=== PATIENT | female | born 1990 | race Caucasian/White ===

== ENCOUNTER → 2017-04-19 | Outpatient (CLI) | payer BC, OTHER ==
[2017-04-19 15:30] LABS: URINE APPEARANCE CLEAR (CLEAR); URINE BILIRUBIN NEG (NEG); URINE COLOR YELLOW; URINE EPITHELIAL CELL AUTO 0-5 /lpf (0-5); URINE NITRITE NEG (NEG); URINE PH 7.5 (4.5-7.5); URINE SPECIFIC GRAVITY 1.015 (1.000-1.030); UROBILINOGEN NEG (NEG)
[2017-04-19 15:34] LABS: MANUAL MICROSCOPIC REQUIRED? NO; REVIEW REQ? NO
== END | disposition home or self-care (01) ==
LOC: C.LABSPEC 13:46
PROVIDERS: ATTEND Obstetrics & Gynecology
DX: Z34.91 Encounter for supervision of normal pregnancy, unspecified, first trimester (principal)

== ENCOUNTER → 2017-05-05 | Outpatient (CLI) | payer BC ==
[2017-05-05 12:22] LABS: BASO % 0.1 %; BASO ABS # 0.01 K/uL (0-0.2); COMPLETE YES; EOS % 1.5 %; HEMATOCRIT 37.6 % (37-47); IG% 0.3 %; LYMPH % 26.3 %; LYMPH ABS # 2.05 K/uL (1.2-3.4); MEAN CELL VOLUME 87.4 fL (80-100); MEAN CORPUSCULAR HEMOGLOBIN 30.7 pg (25-34); MEAN CORPUSCULAR HGB CONC 35.1 g/dl (32-36); MEAN PLATELET VOLUME 10.8 fL (7.4-10.4); MONO % 6.2 %; NEUT % 65.6 %; PLATELET COUNT 156 K/uL (130-400); WHITE BLOOD COUNT 7.78 K/uL (4.8-10.8)
[2017-05-08 07:21] LABS: CHLAMYDIA TRACH RNA*** NOT DETECTED (NOT DETECTED); GC (NEIS GONORRHOEAE)RNA** NOT DETECTED (NOT DETECTED)
== END | disposition home or self-care (01) ==
LOC: C.LAB1850 10:28
PROVIDERS: ATTEND Obstetrics & Gynecology
DX: Z34.91 Encounter for supervision of normal pregnancy, unspecified, first trimester (principal)

== ENCOUNTER → 2017-06-30 | Outpatient (CLI) | payer OTHER | END | disposition home or self-care (01) | LOC: C.LAB1850 13:51 | PROVIDERS: ATTEND Obstetrics & Gynecology | DX: Z34.92 Encounter for supervision of normal pregnancy, unspecified, second trimester (principal) ==

== ENCOUNTER → 2017-09-08 | Outpatient (CLI) | payer OTHER ==
[2017-09-08 12:29] LABS: HEMATOCRIT 32.4 % (37-47); HEMOGLOBIN 11.2 g/dL (12.0-16.0)
== END | disposition home or self-care (01) ==
LOC: C.LAB1850 09:24
PROVIDERS: ATTEND Obstetrics & Gynecology
DX: Z34.83 Encounter for supervision of other normal pregnancy, third trimester (principal)

== ENCOUNTER → 2017-09-19 | Outpatient (CLI) | payer OTHER | END | disposition home or self-care (01) | LOC: C.LAB1850 07:32 | PROVIDERS: ATTEND Obstetrics & Gynecology | DX: O28.1 Abnormal biochemical finding on antenatal screening of mother (principal); Z3A.00 Weeks of gestation of pregnancy not specified ==

== ENCOUNTER → 2018-01-12 | Outpatient (CLI) | payer OTHER ==
[~2018-01-12] MED LIST: PRENTAB26 PO
== END | disposition home or self-care (01) ==
LOC: C.PAPS 14:25
PROVIDERS: ATTEND Obstetrics & Gynecology
DX: Z12.4 Encounter for screening for malignant neoplasm of cervix (principal)

== ENCOUNTER 2021-02-24 22:04 | Inpatient (IN) ==
[2021-02-24] MEDS ORDERED: OXYTOCIN 30 UNITS/500 ML BAG IV PRN (22:16)
[2021-02-24] MEDS: LACTATED RINGER'S 1,000 ML IV PRN (22:24)
[2021-02-24] MEDS ORDERED: fentaNYL citrate 100 MCG/2 ML VIAL ONE (22:49)
[2021-02-24] MEDS ORDERED: SODIUM CHLORIDE 0.9% INJ 10 ML VIAL ONE (22:49)
[2021-02-24] MEDS ORDERED: BUPIVACAINE 0.25% 30 ML VIAL ONE (22:49)
[2021-02-24] MEDS ORDERED: ePHEDrine sulfate 50 MG/ML AMP ONE (22:49)
[2021-02-24] MEDS ORDERED: fentaNYL 2MCG/ML ROPIVACAINE 1.25MG/ML 100 ML BAG EPI ONE (22:50)
[2021-02-24 22:51] LABS: Hemoglobin 11.5 g/dL (12.0-16.0); Mean Corpuscular Hemoglobin 30.1 pg (25-34); Mean Corpuscular Hgb Conc 32.9 g/dL (32-36); Mean Corpuscular Volume 91.6 fL (80-100); Platelet Count 161 K/uL (130-400); RDW Coefficient of Variation 14.6 % (11.5-14.5); RDW Standard Deviation 49.6 fL (36.4-46.3); Red Blood Count 3.82 M/uL (4.2-5.4); White Blood Count 9.15 K/uL (4.8-10.8)
[2021-02-24] MEDS ORDERED: OXYTOCIN 30 UNITS/500ML NSS ONE (23:00)
[2021-02-24 23:08] LABS: Albumin Level 2.6 gm/dl (3.4-5.0); BUN Creatinine Ratio 19.4 (10-20); Calcium 8.7 mg/dl (8.5-10.1); Creatinine Clr Calc Pharmacy 122.2 ml/min; Est GFR (African American) 136.2 ml/min; Est GFR (Non-African American) 117.5 ml/min; Potassium 3.9 mmol/L (3.5-5.1)
[2021-02-24 23:10] LABS: Albumin Globulin Ratio 0.7 (0.9-2); Bilirubin,Total 0.2 mg/dl (0.2-1); Globulin 3.9 gm/dl (2.5-4.0); Total Protein 6.5 gm/dl (6.4-8.2)
--- NOTE | 2021-02-24 23:40 | Anesthesiology Consultation ---
Date of Service February 24, 2021 Assessment & Plan (1) Encounter for pre-operative examination: Chart Review Chart Review: Acceptable Risk for Surgery and Patient NOT seen in Pre Admission Testing Consults Requested none ASA [id number] Proposed Anesthesia Anesthesia Type: Labor Epidural Risk / Benefits Reviewed With: PT / POA / Parent / Guardian, Accepts Plan and Informed Consent Obtained History Height/Weight Height: 5 ft 3 in Weight: 77.111 kg Allergies Allergy/AdvReac Type Severity Reaction Status Date / Time gluten Allergy Severe GI SYMPTOMS Verified 02/24/21 22:18 Medications Home Medications Medication Instructions Recorded Confirmed Last Taken vits no.124-ferrous fum 1 tab PO DAILY 02/24/21 02/24/21 02/24/21 27 mg iron-folic acid 800 mcg tablet ( Vitamin) Active Medications Generic Name Dose Route Start Last Admin Trade Name Freq PRN Reason Stop Dose Admin Lactated Ringer's 1,000 mls @ 125 mls/hr 02/24/21 22:16 02/24/21 23:08 Lr IV 02/26/21 22:15 125 mls/hr .Q8H PRN Infusion L&D Protocol Protocol NPO Date Last Intake of Fluids: 02/24/21 Time Last Intake of Fluids: 23:37 Date Last Intake of Solids: 02/24/21 Time Last Intake of Solids: 23:38 Past Medical History Medical History History of chicken pox Shingles Exercise / Class Metabolic Activity II 4-5 Yardwork/Stairs/Walk up hill Past Family History Family History Grandmother (Maternal) Ovarian cancer Mother BRCA positive Denies family history of Breast cancer Colorectal cancer Past Surgical History Surgical History S/P wisdom tooth extraction Past Anesthesia History No Hx of Anesthesia Complications History of PONV No Hx of PONV Social History Smoking Status: Never smoker Hx Alcohol Use: No Hx Substance Use: No substance use type: does not use Review of Systems Negative for chest pain or shortness of breath. Patient denies history of abnormal bleeding or bleeding disorder. Patient denies active use of anticoagulants other than low dose aspirin. Patient denies numbness, tingling or weakness in lower extremities. Physical Exam Vital Signs Last Vital Signs Temp 36.8 C 02/24/21 22:22 Pulse 118 H 02/24/21 23:33 Resp 18 02/24/21 22:22 BP 138/88 02/24/21 22:51 Pulse Ox 96 02/24/21 23:33 Constitutional not obese (gravid) ENMT Mouth: no TMJ abnormality and oral opening not small Thyromental Distance: > or= 3.5 Finger Breadths Mallampati Class: II Neck normal visual inspection; neck extension not limited Respiratory normal respiratory effort Cardiovascular Rate/Rhythm: regular rate and regular rhythm Neurologic moves all extremities Psychiatric Orientation: alert and oriented x 3 Testing Laboratory Results 02/24/21 22:39 02/24/21 22:39
--- NOTE | 2021-02-25 00:55 | History & Physical Report ---
Date of Service February 25, 2021 Assessment & Plan (1) Encounter for supervision of normal in multigravida: Plan: Admit to L&D for labor. EFM, toco, labs. COVID swab per protocol. OK for epidural if she desires. Admission and Anticipated Discharge Date Admission Date: February 24, 2021 History of Present Illness Chief Complaint: labor Primary Care Provider: LIZA Rojas 30yo @ 39 10/09, spontaneous labor. complicated by low-lying placenta, resolved. Had been pau throughout the day, this has progressed to Q 4 min ctx. No VB, ROM. +FM Allergies Allergy/AdvReac Type Severity Reaction Status Date / Time gluten Allergy Severe GI SYMPTOMS Verified 02/24/21 22:18 Home Medications Medication Instructions Recorded Confirmed Type vits no.124-ferrous fum 1 tab PO DAILY 02/24/21 02/24/21 History 27 mg iron-folic acid 800 mcg tablet ( Vitamin) Patient History Medical History History of chicken pox Shingles Surgical History S/P wisdom tooth extraction Family History Grandmother (Maternal) Ovarian cancer Mother BRCA positive Denies family history of Breast cancer Colorectal cancer Social History Smoking Status: Never smoker Hx Alcohol Use: No Hx Substance Use: No Preferred Language: Lao Communication Ability: Effective 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 No s/s chorio or abruption. Skin: no rashes, warm and dry Psychiatric: A+Ox3, euthymic affect Results & Data ([facility]) Vital Signs (Past 12 Hours) Vital Signs Temp Pulse Resp BP Pulse Ox 02/25/21 00:43 36.5 C 92 H 20 100 02/25/21 00:40 93 H 93 02/25/21 00:38 95 H 88 L 02/25/21 00:33 102 H 85 L 02/25/21 00:28 98 H 92 02/25/21 00:25 109 H 140/81 02/25/21 00:23 103 H 95 02/25/21 00:20 93 H 90 02/25/21 00:18 101 H 95 02/25/21 00:15 123 H 174/86 H 02/25/21 00:14 109 H 196/109 H 02/25/21 00:13 105 H 97 02/25/21 00:11 110 H 156/88 H 02/25/21 00:08 109 H 20 181/92 H 98 02/25/21 00:05 98 H 188/112 H 02/25/21 00:03 103 H 98 02/25/21 00:02 109 H 161/82 H 02/24/21 23:58 109 H 94 02/24/21 23:55 111 H 94 02/24/21 23:53 111 H 99 02/24/21 23:48 107 H 94 02/24/21 23:47 104 H 94 02/24/21 23:43 123 H 96 02/24/21 23:41 109 H 94 02/24/21 23:38 127 H 169/84 H 98 02/24/21 23:37 100 H 170/79 H 02/24/21 23:33 118 H 96 02/24/21 23:28 106 H 97 02/24/21 22:51 112 H 138/88 02/24/21 22:22 36.8 C 18 02/24/21 22:11 108 H 163/98 H Monitoring External Monitor FHT cat 1 Anna Q 3-4 SVE /-1 Coding Level of Care Code None Diagnoses Encounter for supervision of normal in multigravida Z34.80
[2021-02-25] MEDS: LACTATED RINGER'S 1,000 ML IV PRN (00:59)
--- NOTE | 2021-02-25 01:01 | Labor Progress Brief Note ---
Date of Service February 25, 2021 Subjective Patient progressed to 9cm dilation, was very painful. Gave option to either AROM and try to retract cervix and push to deliver baby, or could wait for labs to result and anesthesia to be able to come up for epidural. Patient initially wanted epidural, but then felt like she wanted to try AROM and pushing. AROM performed, clear fluid. Attempted to retract cervix around head, however patient experienced significant pain with this and requested that I stop. Atte mpted to push with the next few ctx, this did not result in full dilation of cervix, therefore anesthesia was called. Patient was able to sit up for spinal, got some relief from this. Attempted to continue pushing at this point, 0 station. Patient still with some discomfort, which is causing her to pull back from pushing with ctx. Hard to find a comfortable position. T Cat 1. Since she is not feeling urge to push, I suggested that she try to labor down until she feels pressure/urge to push, in order to make her pushing efforts more effective. She felt like this might work. Assessment & Plan Admission and Anticipated Discharge Date Admission Date: February 24, 2021 Results & Data ([facility]) Vital Signs (Past 12 Hours) Vital Signs Temp Pulse Resp BP Pulse Ox 02/25/21 00:43 36.5 C 92 H 20 100 02/25/21 00:40 93 H 93 02/25/21 00:38 95 H 88 L 02/25/21 00:33 102 H 85 L 02/25/21 00:28 98 H 92 02/25/21 00:25 109 H 140/81 02/25/21 00:23 103 H 95 02/25/21 00:20 93 H 90 02/25/21 00:18 101 H 95 02/25/21 00:15 123 H 174/86 H 02/25/21 00:14 109 H 196/109 H 02/25/21 00:13 105 H 97 02/25/21 00:11 110 H 156/88 H 02/25/21 00:08 109 H 20 181/92 H 98 02/25/21 00:05 98 H 188/112 H 02/25/21 00:03 103 H 98 02/25/21 00:02 109 H 161/82 H 02/24/21 23:58 109 H 94 02/24/21 23:55 111 H 94 09/22/21 23:53 111 H 99 02/24/21 23:48 107 H 94 02/24/21 23:47 104 H 94 02/24/21 23:43 123 H 96 02/24/21 23:41 109 H 94 02/24/21 23:38 127 H 169/84 H 98 02/24/21 23:37 100 H 170/79 H 02/24/21 23:33 118 H 96 02/24/21 23:28 106 H 97 02/24/21 22:51 112 H 138/88 02/24/21 22:22 36.8 C 18 02/24/21 22:11 108 H 163/98 H Coding Level of Care Code None
--- NOTE | 2021-02-25 01:54 | Labor Progress Brief Note ---
Date of Service February 25, 2021 Subjective Completely dilated, 0 to +1 station. Pushing about 2 times per contraction. Suspect OP positioning of baby. Discussed with patient, she is frustrated that the baby is not out yet. Will try alternate positions in hopes of rotation of baby's head to hopefully allow easier delivery. Assessment & Plan Admission and Anticipated Discharge Date Admission Date: February 24, 2021 Results & Data ([facility]) Vital Signs (Past 12 Hours) Vital Signs Temp Pulse Resp BP Pulse Ox 02/25/21 01:41 101 H 182/92 H 02/25/21 01:11 100 H 164/80 H 02/25/21 00:43 36.5 C 92 H 20 100 02/25/21 00:40 93 H 93 02/25/21 00:38 95 H 88 L 02/25/21 00:33 102 H 85 L 02/25/21 00:28 98 H 92 02/25/21 00:25 109 H 140/81 02/25/21 00:23 103 H 95 02/25/21 00:20 93 H 90 02/25/21 00:18 101 H 95 02/25/21 00:15 123 H 174/86 H 02/25/21 00:14 109 H 196/109 H 02/25/21 00:13 105 H 97 02/25/21 00:11 110 H 156/88 H 02/25/21 00:08 109 H 20 181/92 H 98 02/25/21 00:05 98 H 188/112 H 02/25/21 00:03 103 H 98 02/25/21 00:02 109 H 161/82 H 02/24/21 23:58 109 H 94 02/24/21 23:55 111 H 94 02/24/21 23:53 111 H 99 02/24/21 23:48 107 H 94 02/24/21 23:47 104 H 94 02/24/21 23:43 123 H 96 02/24/21 23:41 109 H 94 02/24/21 23:38 127 H 169/84 H 98 02/24/21 23:37 100 H 170/79 H 02/24/21 23:33 118 H 96 02/24/21 23:28 106 H 97 02/24/21 22:51 112 H 138/88 02/24/21 22:22 36.8 C 18 02/24/21 22:11 108 H 163/98 H Coding Level of Care Code None
[2021-02-25] MEDS ORDERED: CITRIC ACID/SODIUM CITRATE 15 ML UDC ONE (02:36)
--- NOTE | 2021-02-25 02:39 | History & Physical Bridge Note ---
Date of Service February 25, 2021 History & Physical Bridge Note I have examined the patient, reviewed the History & Physical and in the interval since the performance of the History & Physical I have noted the following changes of clinical significance: no changes noted Patient has been repositioned on both sides, and hands and knees. Then pushed again, making some progress to +1 station. At this point, patient is requesting section. She feels like she is emotionally and physically exhausted an d cannot continue. I counseled her on this being her 3rd , and that with some good pushing effort, we would likely be able to deliver the baby vaginally. She again requests section instead. Informed consent obtained, will proceed to OR for section for maternal request due to exhaustion.
[2021-02-25] MEDS ORDERED: ceFAZolin 2000MG 2,000 MG/15 ML SYR IV ONE (02:45)
[2021-02-25] MEDS ORDERED: CITRIC ACID/SODIUM CITRATE 15 ML UDC PO ONE (02:45)
[2021-02-25] MEDS ORDERED: ONDANSETRON INJ 2 MG/ML 2 ML VIAL ONE (02:47)
[2021-02-25] MEDS ORDERED: fentaNYL citrate 100 MCG/2 ML VIAL ONE (02:47)
[2021-02-25] MEDS ORDERED: MoRPHine SULFATE PF 1 MG/ML 10 ML AMP/VIAL ONE (02:48)
[2021-02-25] MEDS ORDERED: OXYTOCIN 10 UNITS/ML VIAL ONE (02:49)
[2021-02-25] MEDS ORDERED: SODIUM CHLORIDE 0.9% INJ 10 ML VIAL ONE (02:49)
[2021-02-25] MEDS ORDERED: PHENYLEPHRINE 100MCG/ML 5ML SYR ONE (03:41)
[2021-02-25] MEDS ORDERED: ePHEDrine sulfate 50 MG/ML SYR ONE (03:41)
[2021-02-25] MEDS ORDERED: ONDANSETRON INJ 2 MG/ML 2 ML VIAL IV PRN ×2 (03:47→21:47)
[2021-02-25] MEDS ORDERED: NALBUPHINE HCL INJ 10 MG/ML AMP IV PRN (03:47)
[2021-02-25] MEDS ORDERED: HYDROmorphone INJ 0.5 MG/0.5 ML SYR IV PRN (03:47)
[2021-02-25] MEDS ORDERED: MoRPHine SULFATE PF 1 MG/ML 10 ML AMP/VIAL INT SPINAL ONE (03:47)
[2021-02-25] MEDS ORDERED: ACETAMINOPHEN 1000 MG/100 ML IV IV PRN (03:47)
[2021-02-25] MEDS ORDERED: NALOXONE HCL 0.4 MG/1 ML VIAL/CARP IV PRN (03:47)
[2021-02-25] MEDS ORDERED: LACTATED RINGER'S 500 ML IV PRN (03:47)
[2021-02-25] MEDS ORDERED: NALOXONE HCL 0.08 MG in SYRINGE 1.8 ML IV PRN (03:47)
[2021-02-25] MEDS ORDERED: NALOXONE HCL 1 MG in SODIUM CHLORIDE 0.9% 1000ML 1,000 ML IV PRN (03:47)
[2021-02-25] MEDS ORDERED: ePHEDrine sulfate 50 MG/ML AMP IV PRN (03:47)
[2021-02-25] MEDS ORDERED: DC INTRASPINAL MORPHINE SCH (04:00)
[2021-02-25] MEDS ORDERED: SODIUM CHLORIDE 0.9% 1000ML 1,000 ML IV SCH (04:00)
[2021-02-25] MEDS ORDERED: NO NARCOTICS OR SEDATIVES SCH (04:00)
--- NOTE | 2021-02-25 04:16 | Operative Report ---
PG Post Operative Report Pre & Post Diagnosis Operation Date: 02/25/21 02:30 Pre-Op Diagnosis: 1. Labor, maternal exhaustion Post-Op Diagnosis: 1. Same, cephalopelvic disproportion 2. Delivery of live male child I identified the patient and participated in the time-out.: Yes Procedure Operation Date: 02/25/21 02:30 Actual Procedures Primary Low Transverse Section in - Aubree Adkins DO Surgeon Aubree Adkins, Fiber Optic Assembly Worker Edelmira Tomas RN Estimated Blood Loss 650 Findings Consistent with Post-Op Diagnosis Viable male , Apgars 8/9. Weight 8# 13oz. Normal appearing uterus, tubes, ovaries. Specimens placenta, cord blood, cord gas Drains khan clear yellow Anesthesia Type Spinal Complications none Disposition Accompanied Patient To Recovery: No Disposition: L&D Indications 30yo @ 39 5/7, arrived to L&D in spontaneous labor. Pushed for 2 hours, became exhausted and requested section. At time of , finding of cephalopelvic disproportion and 8#13oz baby. Her two prior babies were 6 and 7 lbs. Description of Procedure The patient was seen in her labor and delivery room, risks benefits and alternatives to surgery were reviewed. Informed consent obtained. Questions were answered. She was taken to the operating room, spinal anesthesia was administered. She was then prepared and draped in the usual sterile fashion in the supine position with a leftward tilt. Timeout was confirmed. A Pfannenstiel skin incision was made with a scalpel, and carried through to the underlying layer of fascia. Fascia was nicked at midline, and this incision was extended bilaterally. The superior aspect of the fascial incision was grasped with Dunia clamps x2, elevated off the underlying rectus abdominis muscles, and dissected sharply and bluntly. In similar fashion, the inferior aspect of the fascial incision was dissected. The rectus abdominis muscles were , and the peritoneum was entered bluntly digitally. This was extended bilaterally. The bladder flap was taken down carefully using Metzenbaum scissors. Using a new scalpel, a low transverse uterine incision was created. Clear amniotic fluid noted. The was delivered from a cephalic presentation. The head delivered, followed by shoulders and body. Spontaneous cry on the field. The cord was doubly clamped and cut, and the was handed off to the waiting horologist apprentice. A segment was retained for cord gases. Cord blood was obtained. The placenta was delivered spontaneously intact. The uterus was exteriorized, and cleared of all clots and debris. The hysterotomy incision was reapproximated using 0 Vicryl in a running locked stitch. A second layer of the same suture was used to imbricate the incision. Posterior uterus was evaluated and normal. The uterus was returned to the abdomen, and gutters were cleared of clots and debris. 2-0 vicryl used as [id number] suture at hysterotomy to obtain hemostasis. Excellent hemostasis was observed. The fascial incision was reapproximated using 0 Vicryl in a running stitch. The subcutaneous tissue was irrigated, and reapproximated using 2-0 plain gut in a running stitch. The skin was reapproximated using 4-0 Vicryl in a running subcuticular stitch. Steri-Strips and a bandage were applied. The patient tolerated the procedure well, and will be taken to the recovery area in stable and good condition. Sponge, needle, instrument counts correct x 2. I attest to the content of the Intraoperative Record and any orders documented therein. Any exceptions are noted below. OB Procedure charges OB Charges 44116
[2021-02-25 04:18] LABS: Base Excess Cord Venous Blood -6.7 mEq/L (-7.7-1.9); Cord Venous Blood HCO3 20 mmol/L (18.4-26.8); Cord Venous Blood PCO2 43 mmHg (30.4-57.2); Cord Venous Blood PO2 25 mmHg (14.1-43.3); Cord Venous Blood pH 7.28 (7.20-7.44)
[2021-02-25 04:22] LABS: Base Excess Cord Arterial Bld -3.1 mEq/L (-9-1.8); CO2 Cord Arterial Blood 65 mmHg (39.1-73.5); HCO3 Cord Arterial Blood 26 mmol/L (19.7-28.5); PO2 Cord Arterial Blood 17 mmHg (4.1-31.7); pH Cord Arterial Blood 7.22 (7.1-7.38)
[2021-02-25 04:23] LABS: O2 Saturation Cord Venous Bld < 68.0 % (<68); Oxygen Sat Cord Arterial Blood < 60.0 % (<60)
[2021-02-25] MEDS ORDERED: BENZOCAINE 20% AER SPR 82.5 GM CAN EXT PRN (04:33)
[2021-02-25] MEDS ORDERED: SUPERCREAM 0.870% 15 GM JAR EXT PRN (04:33)
[2021-02-25] MEDS ORDERED: DIPHTHERIA/TETANUS/PERTUSSIS 0.5 ML SYR/VIAL IM ONE (04:33)
[2021-02-25] MEDS ORDERED: MAGNESIUM HYDROXIDE SUSP 30 ML UDC PO PRN (04:33)
[2021-02-25] MEDS ORDERED: SENNA 8.6 MG TAB PO PRN (04:33)
[2021-02-25] MEDS ORDERED: HYDROCORTISONE ACETATE 25 MG SUPP PR PRN (04:33)
[2021-02-25] MEDS: OXYTOCIN 30 UNITS in LACTATED RINGER'S 1,000 ML IV SCH ×2 (04:45→12:53)
--- NOTE | 2021-02-25 05:15 | Anesthesiology Progress Note ---
Date of Service February 25, 2021 Anesthesia Post Procedure Vital Signs Vital Signs: Temp Pulse Resp BP Pulse Ox 02/25/21 05:10 96 H 18 131/72 02/25/21 05:09 89 97 02/25/21 05:04 89 97 02/25/21 05:00 94 H 16 132/64 02/25/21 04:59 92 H 98 02/25/21 04:54 99 H 97 02/25/21 04:50 100 H 18 121/58 L 02/25/21 04:49 100 H 97 02/25/21 04:44 93 H 98 02/25/21 04:40 105 H 18 129/63 02/25/21 04:39 101 H 98 02/25/21 04:34 93 H 97 02/25/21 04:30 95 H 18 129/58 L 02/25/21 04:29 95 H 97 02/25/21 04:24 97 H 96 02/25/21 04:20 36.6 C 98 H 18 126/58 L 02/25/21 04:19 97 H 98 02/25/21 02:13 117 H 143/69 H 02/25/21 01:57 112 H 190/142 H 02/25/21 01:41 101 H 182/92 H 02/25/21 01:11 100 H 164/80 H 02/25/21 00:43 36.5 C 92 H 20 100 02/25/21 00:40 93 H 93 02/25/21 00:38 95 H 88 L 02/25/21 00:33 102 H 85 L 02/25/21 00:28 98 H 92 02/25/21 00:25 109 H 140/81 02/25/21 00:23 103 H 95 02/25/21 00:20 93 H 90 02/25/21 00:18 101 H 95 02/25/21 00:15 123 H 174/86 H 02/25/21 00:14 109 H 196/109 H 02/25/21 00:13 105 H 97 02/25/21 00:11 110 H 156/88 H 02/25/21 00:08 109 H 20 181/92 H 98 02/25/21 00:05 98 H 188/112 H 02/25/21 00:03 103 H 98 02/25/21 00:02 109 H 161/82 H 02/24/21 23:58 109 H 94 02/24/21 23:55 111 H 94 02/24/21 23:53 111 H 99 02/24/21 23:48 107 H 94 02/24/21 23:47 104 H 94 02/24/21 23:43 123 H 96 02/24/21 23:41 109 H 94 02/24/21 23:38 127 H 169/84 H 98 02/24/21 23:37 100 H 170/79 H 02/24/21 23:33 118 H 96 02/24/21 23:28 106 H 97 02/24/21 22:51 112 H 138/88 02/24/21 22:22 36.8 C 18 02/24/21 22:11 108 H 163/98 H Transfer of Care Handoff Completed per policy Notes Mental Status: alert / awake / arousable and participated in evaluation Nausea / Vomiting: adequately controlled Pain: adequately controlled Airway Patency, RR, SpO2: stable & adequate BP & HR: stable & adequate Hydration State: stable & adequate Neuraxial Anesthesia: was administered and sensory block is resolving Anesthetic Complications: no major complications apparent and Pt Satisfied with anesthetic care
[2021-02-25] MEDS: KETOROLAC 30 MG/ML VIAL IV PRN ×3 (05:39→20:50)
[2021-02-25] MEDS: FERROUS SULFATE 325 MG TAB PO SCH (07:58)
[2021-02-25] MEDS: DOCUSATE SODIUM 100 MG CAP PO SCH ×2 (07:58→20:50)
[2021-02-25] MEDS: SIMETHICONE 80 MG CHEW PO SCH ×4 (07:59→20:50)
[2021-02-25] MEDS ORDERED: Nursing to Pharmacy Communication SCH (08:00)
[2021-02-25] MEDS ORDERED: PRENATAL VITAMIN 1 TAB PO SCH (08:00)
[2021-02-25] MEDS: diphenhydrAMINE 50 MG/ML VIAL IV PRN ×2 (08:45→15:33)
--- NOTE | 2021-02-25 09:46 | Anesthesiology Progress Note ---
Date of Service February 25, 2021 Anesthesia Post Procedure Vital Signs Vital Signs: Temp Pulse Pulse Resp BP BP Pulse Ox 02/25/21 09:15 16 97 02/25/21 08:15 16 97 02/25/21 07:15 98.1 F 84 18 137/70 98 02/25/21 06:34 96 H 99 02/25/21 06:30 111 H 145/84 H 02/25/21 06:29 95 H 98 02/25/21 06:24 80 98 02/25/21 06:20 82 18 139/72 02/25/21 06:19 85 98 02/25/21 06:14 83 96 02/25/21 06:10 89 133/70 02/25/21 06:09 94 H 98 02/25/21 06:04 90 97 02/25/21 06:00 84 134/71 02/25/21 05:59 88 98 02/25/21 05:54 82 97 02/25/21 05:50 84 16 132/69 02/25/21 05:49 86 97 02/25/21 05:44 89 98 02/25/21 05:40 96 H 145/73 H 02/25/21 05:39 104 H 97 02/25/21 05:34 97 H 97 02/25/21 05:30 90 136/72 02/25/21 05:29 89 98 02/25/21 05:24 89 97 02/25/21 05:20 90 16 138/70 02/25/21 05:19 94 H 98 02/25/21 05:14 96 H 97 02/25/21 05:10 96 H 18 131/72 02/25/21 05:09 89 97 02/25/21 05:04 89 97 02/25/21 05:00 94 H 16 132/64 02/25/21 04:59 92 H 98 02/25/21 04:54 99 H 97 02/25/21 04:50 100 H 18 121/58 L 02/25/21 04:49 100 H 97 02/25/21 04:44 93 H 98 02/25/21 04:40 105 H 18 129/63 02/25/21 04:39 101 H 98 02/25/21 04:34 93 H 97 02/25/21 04:30 95 H 18 129/58 L 02/25/21 04:29 95 H 97 02/25/21 04:24 97 H 96 02/25/21 04:20 97.9 F 98 H 18 126/58 L 02/25/21 04:19 97 H 98 02/25/21 02:13 117 H 143/69 H 02/25/21 01:57 112 H 190/142 H 02/25/21 01:41 101 H 182/92 H 02/25/21 01:11 100 H 164/80 H 02/25/21 00:43 97.7 F 92 H 20 100 02/25/21 00:40 93 H 93 02/25/21 00:38 95 H 88 L 02/25/21 00:33 102 H 85 L 02/25/21 00:28 98 H 92 02/25/21 00:25 109 H 140/81 02/25/21 00:23 103 H 95 02/25/21 00:20 93 H 90 02/25/21 00:18 101 H 95 02/25/21 00:15 123 H 174/86 H 02/25/21 00:14 109 H 196/109 H 02/25/21 00:13 105 H 97 02/25/21 00:11 110 H 156/88 H 02/25/21 00:08 109 H 20 181/92 H 98 02/25/21 00:05 98 H 188/112 H 02/25/21 00:03 103 H 98 02/25/21 00:02 109 H 161/82 H 02/24/21 23:58 109 H 94 02/24/21 23:55 111 H 94 02/24/21 23:53 111 H 99 02/24/21 23:48 107 H 94 02/24/21 23:47 104 H 94 02/24/21 23:43 123 H 96 02/24/21 23:41 109 H 94 02/24/21 23:38 127 H 169/84 H 98 02/24/21 23:37 100 H 170/79 H 02/24/21 23:33 118 H 96 02/24/21 23:28 106 H 97 02/24/21 22:51 112 H 138/88 02/24/21 22:22 98.2 F 18 02/24/21 22:11 108 H 163/98 H Pain Intensity Bilateral Abdomen: Pain Intensity: 1 Transfer of Care Handoff Completed per policy Notes Mental Status: alert / awake / arousable and participated in evaluation Nausea / Vomiting: adequately controlled Pain: adequately controlled Airway Patency, RR, SpO2: stable & adequate BP & HR: stable & adequate Hydration State: stable & adequate Neuraxial Anesthesia: was administered and sensory block is resolving Anesthetic Complications: no major complications apparent and Pt Satisfied with anesthetic care
[2021-02-25] MEDS: MULTIVITAMIN PO SCH (11:41)
[2021-02-25] MEDS ORDERED: LACTATED RINGER'S 1,000 ML IV SCH (20:45)
[2021-02-25] MEDS ORDERED: diphenhydrAMINE 50 MG/ML VIAL IV PRN (21:47)
[2021-02-25] MEDS ORDERED: PROMETHAZINE HCL 25 MG in SODIUM CHLORIDE 0.9% 50 ML IV PRN (21:47)
[2021-02-25] MEDS ORDERED: KETOROLAC 30 MG/ML VIAL IV PRN (21:47)
[2021-02-25] MEDS ORDERED: diphenhydrAMINE Capsule 25 MG CAP PO PRN (21:47)
[2021-02-25] MEDS: IBUPROFEN 600 MG TAB PO PRN (22:07)
[2021-02-25] MEDS: oxyCODONE/ACETAMINOPHEN 5mg/325mg TAB PO PRN (22:07)
[2021-02-26] MEDS: oxyCODONE/ACETAMINOPHEN 5mg/325mg TAB PO PRN ×5 (03:44→21:03)
[2021-02-26] MEDS: IBUPROFEN 600 MG TAB PO PRN ×5 (03:44→21:04)
[2021-02-26 06:09] LABS: Eosinophils # (auto) 0.05 K/uL (0-0.5); Eosinophils % (auto) 0.6 %; Hematocrit (blood only) 27.3 % (37-47); Immature Granulocytes # (auto) 0.02 K/uL (0.00-0.02); Immature Granulocytes % (auto) 0.3 %; Lymphocytes # (auto) 1.63 K/uL (1.2-3.4); Lymphocytes % (auto) 20.4 %; Mean Corpuscular Hemoglobin 29.8 pg (25-34); Mean Corpuscular Volume 90.4 fL (80-100); Mean Platelet Volume 10.4 fL (7.4-10.4); Monocytes # (auto) 0.71 K/uL (0.11-0.59); Monocytes % (auto) 8.9 %; Neutrophils # (auto) 5.58 K/uL (1.4-6.5); Neutrophils % (auto) 69.8 %; Platelet Count 110 K/uL (130-400); RDW Coefficient of Variation 15.1 % (11.5-14.5); RDW Standard Deviation 50.1 fL (36.4-46.3); Red Blood Count 3.02 M/uL (4.2-5.4); White Blood Count 7.99 K/uL (4.8-10.8)
--- NOTE | 2021-02-26 07:13 | Obstetrical Progress Note ---
Date of Service February 26, 2021 Assessment & Plan (1) delivery delivered: Plan: 30yo PPD 1 s/p LTCS at 39wks 5days -Continue routine care, bandages removed today -Vitals reviewed- HDS, afebrile -Encourage ambulation, advance to regular diet -Pain control with ibuprofen, acetaminophen PRN -Hgb 9.0 -discharge likely tomorrow morning Admission and Anticipated Discharge Date Admission Date: February 24, 2021 Supervising Physician Co-Signing Physician Notes Resident Physician Supervision Note: I was present with [Name of resident] during the history and exam. I discussed the case with the resident and agree with the findings and plan as documented in the note. Any exceptions or clarifications are listed here: [None] Documented By: Michelle Becker MD, FACOG Subjective POD 1 s/p LCTS. Patient seen and examined at bedside. Reports no acute overnight events. Ambulating and voiding. Passing gas, not yet stool. Progressing to regular diet this morning w/o N/V. Bottle Feeding. Pain 0/10 on analgesics. Review of Systems Review of Systems: Denies fevers/chills. Denies dyspnea, cough. Denies chest pain. Denies breast pain or discharge. Denies dysuria. Denies headache. Denies back pain. Physical Exam Physical Exam: General: Alert, oriented, no acute distress Cardiac: Regular rate and rhythm, normal S1, S2. No murmurs appreciated. Respiratory: Clear to auscultation b/l with good air flow entry, symmetric chest rise and fall. No wheezes or crackles. No increased work of breathing or accessory muscle use Abdomen: Soft, nontender, nondistended. Fundus firm and palpable at 1 cm below umbilicus. Surgical incision clean, dry and intact without erythema, warmth or drainage. Bowel sounds appreciated. No guarding or rebound. Skin: No rashes or lesions Extremities: Warm, dry, well-perfused with capillary refill <2s b/l. No lower extremity edema, erythema or swelling. Negative Yue's sign b/l. Results & Data ([facility]) Vital Signs (Past 12 Hours) Vital Signs Temp Pulse Resp BP Pulse Ox 02/26/21 03:30 36.8 C 80 18 136/78 97 02/25/21 23:00 36.8 C 76 20 134/78 98 02/25/21 21:00 20 97 02/25/21 20:10 18 95 02/25/21 19:20 36.8 C 83 20 143/82 H 96 Resident Activity Tracking Resident Involvement: Resident Care Provided Care Provided: OB Delivery
[2021-02-26] MEDS: SIMETHICONE 80 MG CHEW PO SCH ×4 (08:30→21:04)
[2021-02-26] MEDS: FERROUS SULFATE 325 MG TAB PO SCH (08:30)
[2021-02-26] MEDS: DOCUSATE SODIUM 100 MG CAP PO SCH ×2 (08:30→21:03)
[2021-02-26] MEDS: MULTIVITAMIN PO SCH (13:24)
[2021-02-26] MEDS ORDERED: bisacodyL 5 MG TABEC PO SCH (20:00)
[2021-02-27] MEDS: IBUPROFEN 600 MG TAB PO PRN ×3 (01:31→11:38)
[2021-02-27] MEDS: oxyCODONE/ACETAMINOPHEN 5mg/325mg TAB PO PRN ×3 (01:32→11:38)
[2021-02-27] MEDS ORDERED: bisacodyL 10 MG SUPP PR PRN (04:10)
[2021-02-27 06:54] LABS: Hematocrit (blood only) 27.7 % (37-47)
[2021-02-27] MEDS: FERROUS SULFATE 325 MG TAB PO SCH (07:23)
[2021-02-27] MEDS: DOCUSATE SODIUM 100 MG CAP PO SCH (07:23)
[2021-02-27] MEDS: SIMETHICONE 80 MG CHEW PO SCH (07:23)
--- NOTE | 2021-02-27 08:02 | Obstetrical Progress Note ---
Date of Service February 27, 2021 Assessment & Plan (1) delivery delivered: Plan: 30yo POD 2 s/p LTCS at 39wks 5days -Continue routine care, incision site healing well with no signs of infection -Vitals reviewed- afebrile; one BP reading at midnight was elevated, will monitor -Encourage ambulation -Pain control with ibuprofen, acetaminophen PRN -Hgb 9.0, stable -discharge likely today, f/u with OB in 6 weeks Admission and Anticipated Discharge Date Admission Date: February 24, 2021 Supervising Physician Co-Signing Physician Notes Resident Physician Supervision Note: I was present with Dr. Gomes during the history and exam. I discussed the case with the resident and agree with the findings and plan as documented in the note. Any exceptions or clarifications are listed here: [None] Documented By: Mattie Moore MD, FACOG Subjective POD 2 s/p LCTS. Patient seen and examined at bedside. Reports no acute overnight events. Ambulating and voiding. Passing gas, not yet stool. Regular diet w/o N/V. Bottle Feeding. Pain 0/10 on analgesics. Review of Systems Review of Systems: Denies fevers/chills. Denies dyspnea, cough. Denies chest pain. Denies breast pain or discharge. Denies dysuria. Denies headache. Denies back pain. Physical Exam Physical Exam: General: Alert, oriented, no acute distress Cardiac: Regular rate and rhythm, normal S1, S2. No murmurs appreciated. Respiratory: Clear to auscultation b/l with good air flow entry, symmetric chest rise and fall. No wheezes or crackles. No increased work of breathing or accessory muscle use Abdomen: Soft, nontender, nondistended. Fundus firm and palpable at 1 cm below umbilicus. Surgical incision clean, dry and intact without erythema, warmth or drainage. Bowel sounds appreciated. No guarding or rebound. Skin: No rashes or lesions Extremities: Warm, dry, well-perfused with capillary refill <2s b/l. No lower extremity edema, erythema or swelling. Negative Yue's sign b/l. Results & Data ([facility]) Vital Signs (Past 12 Hours) Vital Signs Temp Pulse Resp BP 02/27/21 00:30 36.8 C 92 H 18 153/82 H Resident Activity Tracking Resident Involvement: Resident Care Provided Care Provided: OB Delivery
--- NOTE | 2021-03-02 21:27 | Discharge Summary ---
Date of Service March 02, 2021 Admission HPI Per Admitting Provider 30yo @ 39 10/09, spontaneous labor. complicated by low-lying placenta, resolved. Had been pau throughout the day, this has progressed to Q 4 min ctx. No VB, ROM. +FM Admission Exam (Per Admitting) Constitutional WD/WN, vitals as above Respiratory normal respiratory effort, lungs clear to auscultation no respiratory distress Cardiovascular Rate/Rhythm: regular rate and regular rhythm Gastrointestinal (Abdomen) Inspection/Auscultation: abdomen normal to inspection Percussion/Palpation: abdomen soft; abdomen nontender Skin no rashes, warm and dry Psychiatric A+Ox3, euthymic affect Discharge Data Consultations 02/24/21 22:16 Consult Anesthesiology Stat Procedures Performed Operation Date: 02/25/21 02:30 Actual Procedures p Section in - Aubree Adkins DO Hospital Course (1) Encounter for supervision of normal in multigravida: Admitted in labor, delivered by section. Routine recovery. Discharged home POD#2. Followup in office. For further details, please see documentation in chart. Coding Level of Care Code None Diagnoses Encounter for supervision of normal in multigravida Z34.80
== END 2021-02-27 12:15 | disposition home or self-care (01) | DRG 788 ==
LOC: OPB 22:04 → 4S1 22:06 → 4S2 02-25 06:53